=== PATIENT | female | born 1945 | race Caucasian/White ===

== ENCOUNTER 2018-05-04 08:22 | Emergency (ER) | payer OTHER ==
--- NOTE | 2018-05-04 09:17 | EDPHY ---
HPI/HX/ROS/PE/MDM Narrative: CLINICAL IMPRESSION: Left lower extremity abscess with cellulitis ASSESSMENT/PLAN: Patient is a 72-year-old female with a significant history of remote breast cancer, neuropathy, insomnia and glaucoma who presents for concerns of wound infection. Patient is afebrile and not toxic appearing, no acute distress. Physical exam reveals 3 cm fluctuant mass in the left lateral popliteal fossa with associated cellulitis. There was no evidence of systemic infection, Newton' s cyst, necrotizing skin infection or deep space infection. Incision and drainage was performed as discussed in the procedure note. I was able to identify what appears to be a capsule in addition to thick purulent drainage, query infected epidermoid cyst. She will continue local wound care and warm compress, a small wick was placed. Patient failed Keflex, I spoke to pharmacy and doxycycline appropriate for more broad-spectrum coverage to include MRSA. She is well established with his PCP and will call to schedule an appointment for repeat exam tomorrow. Her PCP is located in [place], if she is unable to follow up with her PCP she is to return to the emergency department for wound check. Return precautions discussed- she will return for fever, redness, swelling, warmth, or streaking around the wound, new lesions, extremity swelling , pain out of proportion or for any other new, worsening or worrisome symptoms. Patient verbalizes understanding and he is in agreement with plan. Case, results and plan of care discussed with Dr. Sam DIFFERENTIAL DIAGNOSIS: includes but not limited to cellulitis, abscess, deep space infection and necrotizing skin infection ED PROCEDURES: Procedure: Incision and drainage. Indication: Abscess. Anesthesia: 1% lidocaine with epi Verbal consent was obtained from the patient to drain the abscess. The patient was prepped in the usual fashion. The abscess was incised and drained with an 11 blade, copiously irrigated. Approximately 10 cc of thick purulent material was expressed. Loculations were broken and no additional material was expressed. I was able to identify a partial capsule and excise it. The abscess was drained successfully and there were no complications. The procedure was performed by myself. CHIEF COMPLAINT: Abscess HPI: Patient is a 72-year-old female with a significant history of remote breast cancer on tamoxifen, neuropathy, insomnia and glaucoma who presents to the emergency department with a possible abscess. Patient reports this last weekend she noticed a small bump on the back of her left knee, lateral aspect. It was not painful at this time and she did not notice any redness. On Monday when she was at work she felt that it was growing in size and noticed that it was mildly red. She was seen and evaluated at Urgent Care and subsequently placed on Keflex. Patient has had 2 full days of antibiotic therapy, reports this morning increased area of redness as well as enlarging size of the bump. Patient denies any fevers, chills, nausea, vomiting or decreased appetite. She has no pain in the posterior fossa of her knee. She denies any calf pain. No history of abscess formation and no history of MRSA. PAST MEDICAL HISTORY: Remote breast cancer, neuropathy, insomnia, glaucoma Pertinent Past Surgical History: Mastectomy Social History: Denies alcohol, denies cigarette smoking and denies illicit drug use REVIEW OF SYSTEMS: All other systems negative Constitutional: No fever, no chills Musculoskeletal: No deformity, no joint pain Skin: Redness and bump left lower extremity Neurological: No sensory loss or weakness, 2 point discrimination intact. PHYSICAL EXAM: General Appearance: Alert, oriented, appropriate for age, cooperative, NAD, well hydrated, non-toxic appearing, VSS, no hypoxia. Neurological: Alert and oriented x 3 Skin: Warm, dry Musculoskeletal: Upper Extremities: Intact distal pulses, Full range of motion intact, no tenderness, no ecchymosis or edema Lower Extremities: Left lower extremity reveals approximately 3 cm fluctuant mass left lateral popliteal fossa with associated surrounding erythema. There is no central fullness or tenderness to palpation in the popliteal fossa. Intact distal pulses, No edema, No tenderness, No cyanosis, full range of motion intact, No calf tenderness bilaterally. MEDICAL DECISION MAKING: Patient was seen independently. Secondary supervising physician at time of evaluation was Dr. Sam. Diagnosis: Left lower extremity abscess and cellulitis. New, requires workup Summary: See assessment and plan for summary of ED visit Clinical lab tests: Ordered. Independent visualization of images, tracing, or specimens yes. Decision to obtain medical records or history from someone other than the patient yes Review / Summarize previous medical records yes Discussed patient with another provider yes, Dr. Sam (RayAnne Mariea Tiesha) ED Course: The patient was evaluated and managed by the physician assistant signal maintainer. I have reviewed this chart and I agree with the findings and plan of care as documented , as indicated by my signature. I am the secondary supervising physician. ( Sandra Sam) - Data Points Medications Given: Discontinued Medications Diphtheria/Tetanus/Acell Pertussis (Boostrix) 0.5 ml IM .ONCE ONE Stop: 05/04/18 09:38 Last Admin: 05/04/18 10:05 Dose: 0.5 ml Microbiology Results: MICROBIOLOGY 05/04/18 09:45 Leg - Swab Gram Stain - Final 05/04/18 09:45 Leg - Swab Wound Culture - Preliminary General Initial Vital Signs: Initial Vital Signs Temperature (C) 36.8 C 05/04/18 08:27 Heart Rate 82 05/04/18 08:27 Respiratory Rate 16 05/04/18 08:27 Blood Pressure 154/92 H 05/04/18 08:27 O2 Sat (%) 95 05/04/18 08:27 O2 Delivery Mode Room Air Allergies/Adverse Reactions: No Known Allergies Allergy (Verified 10/26/17 13:58) Home Medications: Medication Instructions Recorded Brimonidine 0.1% [ALPHAGAN P 0.1% 1 drop LEFTEYE BID 10/26/17 (*)] Dorzolamide/Timolol [Cosopt (*)] 1 drops LEFTEYE BID 10/26/17 Latanoprost 0.005% [Xalatan 0.005% 1 drops LEFTEYE HS 10/26/17 (*)] Pregabalin [Lyrica 75mg (*)] 75 mg PO BID 10/26/17 Tamoxifen Citrate [Nolvadex 10 MG 10 mg PO HS 10/26/17 (*)] Zolpidem Tartrate [Ambien 5MG (*)] 10 mg PO HS 10/26/17 Acetaminophen [Tylenol 325mg (*)] 650 mg PO Q6HRS tab 11/09/17 Polyethylene Glycol 3350 [Miralax 17 gm PO DAILY PRN pkt 11/09/17 17 gm (*)] Sennosides/Docusate Sodium 1 - 2 tab PO BID tab 11/09/17 [Senokot-S] Doxycycline Hyclate 100 mg PO BID 10 Days tablet 05/04/18 Keflex 05/04/18 Departure - Departure Disposition: Home, Routine, Self-Care Clinical Impression: Cellulitis and abscess of left leg, Abscess Condition: Good Instructions: Abscess (ED) Additional Instructions: DISCHARGE INSTRUCTIONS FROM YOUR DOCTOR Thank you for visiting our emergency department today. Please keep in mind that discharge from the emergency department does not mean that there is nothing wrong - it simply means that we have not identified an emergency condition that requires further evaluation or treatment in the hospital. You should always plan to follow up with primary care for re-evaluation of your condition in the next 2-3 days. If you have been referred to a specialist, please call as soon as possible (today or tomorrow) to schedule your follow up appointment at the appropriate time. Rest, drink plenty of fluids, healthy foods, all to to help your immune system fight the infection and to help the healing process. Keep the wound area clean. Wear loose clothing. Clean the wound areas with soap and water, at least twice daily. Change the dressings at least twice daily and/ or when soiled. You have a small wick left in place, please remove a little bit of this every day. Apply clean, warm compresses as much as possible. Elevate the affected limb as much as possible above the level of the heart. Doxycycline Consume yogurt and take over the counter probiotics to help prevent diarrhea from the antibiotics. Ibuprofen as directed every 6-8 hours with food as needed for pain and/or fever. Stop if this upsets your stomach. Tylenol as directed every 4-6 hours as directed for pain and/or fever. Do not exceed 4000 mg in 24 hours. Continue your regular medications as prescribed. Schedule a follow-up appointment with your primary care physician in the next 24 -48 hours for a wound check to ensure you are healing and don't require further antibiotics or intervention. You may also return to the ED for a wound check. Return for persistent or recurrent fever, vomiting, inability to tolerate the antibiotic(s) by mouth, redness, swelling, warmth, or streaking around the wound , increased redness outside the marked lines, new lesions, extremity swelling, pain out of proportion to what you would expect for this infection, chest or abdominal pain, vomiting, throat tightness, facial swelling, difficulty breathing or swallowing, sores in the mouth or the eyes, or for any other new, worsening or worrisome symptoms. People present with illnesses and injuries in different ways, and it is always possible that we have missed something. You may always return for re-evaluation if symptoms worsen or if they are not improving or if you develop new/different symptoms. Again, thank you for choosing our emergency department. We hope that you feel better. Referrals: KARISHMA ARROYO MD [Other] - 1 day without fail Cathy Singer MD [Medical Doctor] - As per Instructions Prescriptions: Doxycycline Hyclate 100 mg PO BID 10 Days tablet
[2018-05-04] MEDS ORDERED: TDAP ADULT 0.5 ML INJ (BOOSTRIX) IM ONE (09:37)
[2018-05-04 11:19] VITALS: BP 141/78
--- NOTE | 2018-05-04 16:53 | ASMTCMCOM ---
CM Note CM Note Notes: Pt reported that PCP is in [facility] and she would like to obtain a PCP in the area. She had a list of DrSeng's that were recommended but she was concerned that she would not be able to get in as a new pt. in the required time frame (48 hrs.) [facility] was called (consigire services required) The airline lounge receptionist reported that the charge was $[address] Hernandez could see the pt. on Sunday 05/07. Pt indicated that would work and 's office was given pt. information to follow up. Message left with pt. to follow up and CM office number was provided if further assistance is needed. Date Signed: 05/04/2018 04:52 PM Electronically Signed By:Joan Meza LCSW
== END 2018-05-04 11:19 | disposition home or self-care (01) ==
PROC: 0H9LXZZ Drainage of Left Lower Leg Skin, External Approach (ICD-10-PCS; principal; 2018-05-04)
DX: L02.416 Cutaneous abscess of left lower limb (principal); L03.116 Cellulitis of left lower limb; Z23 Encounter for immunization

== ENCOUNTER 2018-05-05 08:36 | Emergency (ER) | payer OTHER ==
--- NOTE | 2018-05-05 08:58 | EDPHY ---
H & P Stated Complaint: recheck R leg cellulitus/ I&D site from yesterday Time Seen by Provider: 05/05/18 08:55 HPI/ROS: HPI: This is a 72-year-old female who presents with Chief Complaint: recheck R leg cellulitis/ I&D site from yesterday Location: Right posterior leg Quality: Wound check Duration: Several days Signs and Symptoms: No bleeding, no radiation, no numbness, no weakness, no tingling, no incontinence, no decreased range of motion, no swelling, no pain, no fever Timing: Improving Severity: Mild Context: Patient has a history of remote breast cancer, neuropathy, insomnia globe, presents for wound checked after she was seen yesterday in the emergency room for left popliteal fossa abscess and cellulitis. Abscess was incised and drained and packing placed. She was placed on doxycycline. She had surgical markings used to evonne the edges of the redness. She reports that there is 2 in improvement in the redness with decreased swelling. She has increased range of motion. She was able to get an appointment with a new primary care provider as she recently moved from [facility]. Appointment with this new primary care provider is on Monday. Chart review shows that she was seen at urgent care and originally placed on Keflex which she failed after 24-48 hours. Denies fever, radiation, weakness. Modifying Factors: Doxycycline Comment: ROS: A comprehensive 10 system review of systems is otherwise negative aside from elements mentioned in the history of present illness. MEDICAL/SURGICAL/SOCIAL HISTORY: Medical history: Remote breast cancer, neuropathy, insomnia, glaucoma Surgical history: Mastectomy Social history: Nonsmoker. Denies alcohol and illicit drug use. CONSTITUTIONAL: Nontoxic-appearing elderly white female, awake and alert, no obvious distress HEENT: Atraumatic and normocephalic. NECK: supple EXTREMITIES: 2/2 pulses, strength 5/5, left KNEE: Popliteal fossa shows mild redness approximately 2 in within the borders of the surgical marking with no fluctuance, no induration, no tenderness with palpation. Packing in place. no effusion, no medial and lateral joint line tenderness, full extension to 180, flexion to 120. No pain with varus and valgus exam. No pain with anterior drawer or posterior drawer test. Extensor mechanism intact. DIP/PIP/MCP flexion/ extension intact with good light touch sensation. no deformities, no clubbing, no cyanosis or edema. NEUROLOGICAL: no focal neuro deficits. GCS 15. Light touch sensation intact. SKIN: Warm and dry, no erythema. no rash. Good capillary refill. Source: Patient, Old records Exam Limitations: No limitations - Medical/Surgical History Hx Asthma: No Hx Chronic Respiratory Disease: No Hx Diabetes: No Hx Cardiac Disease: No Hx Renal Disease: Yes Hx Cirrhosis: No Hx Alcoholism: No Hx HIV/AIDS: No Hx Splenectomy or Spleen Trauma: No Other PMH: breast CA, mastectomy, ovarian CA, glaucoma, R hip replacement, nephrectomy, - Social History Smoking Status: Never smoked Constitutional: Initial Vital Signs Temperature (C) 36.7 C 05/05/18 08:38 Heart Rate 82 05/05/18 08:38 Respiratory Rate 18 05/05/18 08:38 Blood Pressure 140/83 H 05/05/18 08:38 O2 Sat (%) 95 05/05/18 08:38 O2 Delivery Mode Room Air Allergies/Adverse Reactions: No Known Allergies Allergy (Verified 10/26/17 13:58) Home Medications: Medication Instructions Recorded Brimonidine 0.1% [ALPHAGAN P 0.1% 1 drop LEFTEYE BID 10/26/17 (*)] Dorzolamide/Timolol [Cosopt (*)] 1 drops LEFTEYE BID 10/26/17 Latanoprost 0.005% [Xalatan 0.005% 1 drops LEFTEYE HS 10/26/17 (*)] Pregabalin [Lyrica 75mg (*)] 75 mg PO BID 10/26/17 Tamoxifen Citrate [Nolvadex 10 MG 10 mg PO HS 10/26/17 (*)] Zolpidem Tartrate [Ambien 5MG (*)] 10 mg PO HS 10/26/17 Acetaminophen [Tylenol 325mg (*)] 650 mg PO Q6HRS tab 11/09/17 Polyethylene Glycol 3350 [Miralax 17 gm PO DAILY PRN pkt 11/09/17 17 gm (*)] Sennosides/Docusate Sodium 1 - 2 tab PO BID tab 11/09/17 [Senokot-S] Doxycycline Hyclate 100 mg PO BID 10 Days tablet 05/04/18 Keflex 05/04/18 Medical Decision Making Procedures: Procedure: Splint placement. A left knee immobilizer was applied. After application of the splint I returned and re-examined the patient. The splint was adequately immobilizing the joint and distal to the splint the patient's circulation and sensation was intact. ED Course/Re-evaluation: Vital signs reviewed and stable upon arrival. The redness has decreased approximately 2 in within the the surgical markings. It is approximately 50% improved. Placed in knee immobilizer for the next 24-72 hours to decreased flexion extension. Packing remained in place. Patient has an appointment on Monday for wound check with her primary care provider. Is verbal and written wound care instructions provided to the patient. No signs of neurovascular compromise/tenting of skin/compartment syndrome/ extremities and joints examined above and below area of concern and are neurovascularly intact. This patient was seen under the supervision of my secondary supervising physician. I evaluated care for this patient independently. Discussed this patient with Dr. Kincaid who did not see the patient. Differential Diagnosis: Differential diagnosis includes but is not limited to cellulitis, abscess, tenosynovitis, compartment syndrome. Departure - Departure Disposition: Home, Routine, Self-Care Clinical Impression: Wound check, abscess, Cellulitis and abscess of left leg Condition: Good Instructions: Cellulitis (ED), Abscess (ED), Abscess Incision and Drainage (DC) Additional Instructions: Keep the packing in place until you see her primary care provider on Monday for wound check. On Monday the packing should be removed and replaced if necessary. Wear the knee immobilizer while out of bed for the next 48-72 hours to prevent flexion and extension of the knee. Continue to take doxycycline as prescribed. Do not skip a dose. Return to the ER immediately if you experience redness, red streaks, have fevers /chills, flu like symptoms, limited range of motion, or any other symptoms that concern you. Referrals: KARISHMA ARROYO [Other] - As per Instructions
[2018-05-05 09:03] VITALS: BP 140/83
== END 2018-05-05 09:25 | disposition home or self-care (01) ==
DX: Z48.00 Encounter for change or removal of nonsurgical wound dressing (principal); L02.416 Cutaneous abscess of left lower limb; L03.116 Cellulitis of left lower limb
CPT/HCPCS: L1830